=== PATIENT | male | born 1960 | race Caucasian/White ===

== ENCOUNTER 2019-07-22 06:05 | Inpatient (IN) | payer OTHER, SELFPAY ==
[2019-07-09 13:54] VITALS: BMI 26.3
[2019-07-22] VITALS (14 sets, daily range): BP systolic 128–156; BP diastolic 84–100; PULSE 72–99; RESP 8–18; TEMP 35.9–37.7; O2SAT 94–99; BMI 25.2
--- NOTE | 2019-07-22 | DI.RAD.S_ITS ---
PROCEDURE: XR CERVICAL SPINE 2V OR 3V INDICATIONS: C3-4, 4-5, 5-6, 6-7 ACDF WITH ANTERIOR INSTRUMENTATION TECHNIQUE: 2 intraoperative fluoroscopic view(s) of the cervical spine were acquired. COMPARISON: [facility], MR, MR CERVICAL SPINE WITHOUT CONTRAST, 05/17/2019, 6:53. FINDINGS: ACDF spanning the C3-C7 levels. Endotracheal tube is in place. IMPRESSION: Expected appearance of the ACDF at C3-C7. Dictated by: Alejandro Aguillon M.D. on 07/22/2019 at 12:29 Approved by: Alejandro Aguillon M.D. on 07/22/2019 at 12:31
[2019-07-22] MEDS: LACTATED RINGERS 1,000 ML 42 ML IV ×2 (07:42→09:49)
[2019-07-22] MEDS: CEFAZOLIN 2 GM/100 ML FROZ.PIGGY IV ×3 (07:45→23:15)
--- NOTE | 2019-07-22 08:24 | SUR.OPER ---
Supine, head on gel donut. Arms padded with gel pads, tucked at sides, towel roll under shoulders. Tape from shoulder to toes bilaterally. Safety belt at thigh. Legs uncrossed.
--- NOTE | 2019-07-22 08:32 | SUR.OPER ---
Diffuse flat reddened rash to chest and shoulders noticed during positioning. Dr. Branch notified during time out.
--- NOTE | 2019-07-22 12:19 | P.OP_ITS ---
Operative Date/Time/Diagnoses Date of procedure: 07/22/19 Time of procedure: 08:19 Pre-op diagnosis: 1. C3-4, C4-5, C5-6, C6-7 spinal stenosis 2. C3-4, C4-5, C5-6, C6-7 spondylolisthesis 3. C3-4, C4-5, C5-6, C6-7 spondylosis with radiculopathy Post-op diagnosis: same Procedure & Clinicians Procedure: 1. C3-4 C4-5 C5-6 C6-7 anterior cervical diskectomy and fusion 2. C3-4 C4-5 C5-6 anterior interbody cage placement 3. C6-7 structural allograft placement 4. C3-4 C4-5 C5-6 C6-7 anterior instrumentation with plate and screw placement in C3-C4-C5-C6 and C7 vertebrae 5. Utilization of microsurgical technique and operating microscope Same procedure as scheduled: Yes Indications: Patient has been having chronic neck pain and worsening cervical radiculopathy. Patient failed multiple conservative management with worsening pain weakness and numbness in her upper extremity. Patient has been having difficulty performing activity of daily living. After discussing risks benefits of treatment options, patient elected proceed with surgery. Surgeon: Jeovany Branch Leak Detection Engineer: Blanquita Bautista'Brien Click Yes if Unassisted: No Anesthesia Type: General Operative Notes Closure Type: primary Specimen(s): none sent Prosthetic devices, grafts, tissues, transplants, or devices: Globus extend plate, Peek Cages, structural allograft Applied: catheter Estimated Blood Loss (mL): 30 Blood products transfused: none Procedure in detail: Using lateral C-arm imaging, the level between C3 and C7 was identified and marked on patient's neck. A oblique incision from midline towards medial border of sternocleidomastoid muscle was made. The platysma muscle was incised in line with skin incision. Metzenbaum scissor was used to develop the plane between the medial border of sternocleidomastoid d and the strap muscles medially. The carotid sheath and its contents were identified and protected behind the hand-held retractor during the entire case. The plane between the carotid sheath and strap muscles was developed with Metzenbaum scissors. Dissection was made down to the level of the anterior cervical fascia. Longus colli muscle was incised on the anterior aspect of vertebral bodies bilaterally from C3-C7. Spinal needle was placed into the C4-5 disc space and confirmed with lateral C-arm imaging. Using microsurgical technique and operative microscope, anterior cervical diskectomy was performed at C3-4 C4-5 C5-6 and C6-7 level. This was done by removing the disc material, removing the anterior and posterior osteophytes posterior longitudinal ligaments along with performing bilateral foraminotomies at all 4 levels. Patient was found to have severe central and foraminal stenosis at all 4 levels. Patient's stenosis was fully decompressed after decompression was completed. After the diskectomy was completed, 4 anterior interbody cages were obtained. The cages were packed with globus via cell bone grafting material. One cage each along with the bone grafting material was then packed into the interbody spaces from C3-C6 with 1 cage into each interbody level. Total of 3 cages. A structural allograft was placed into the C6-7 interbody space to accomplish anterior interbody fusion C6-7 level. Large anterior and posterior osteophytes was removed using Kerrison rongeur and Leksell rongeur. After the cages were placed, the anterior cervical plate was stabilized to the C3-C7 vertebrae using 2 screws at each each level. Total 10 screws were placed. After confirming placement of the hardware with AP and lateral C-arm imaging, the screws were locked into the plate using the locking mechanism and torque limiting screwdriver. After the hardware was placed and confirmed with AP and lateral C-arm imaging, the wound was irrigated with sterile normal saline. The platysma muscle and the subcutaneous tissue was closed with 2-0 Vicryl. The skin was closed with 4- 0Monocryl and Steri-Strips. Patient tolerated the procedure well. Patient was transferred recovery room in stable condition. There were no complications. Complications: none Post-operative Condition: stable Disposition: PACU Plan for aftercare: Admit to inpatient hospital
--- NOTE | 2019-07-22 12:35 | SUR.OPER ---
Addendum entered by Sheri Bardales R.N. 07/22/19 12:36: No force was needed or applied during placement. It was not a difficult [place] to place. Dr. Branch, Dr. Lovett, and PACU nurse notified. Original Note: Blood noted in tubing of K[place]ney catheter during transfer to inpatient bed from OR table. No
--- NOTE | 2019-07-22 13:28 | SUR.PHASEI ---
Directly before transferring pt to floor, pt observed to have rash on left flank area. Advised CINTHYA Lynch of this. No new orders received. Pt reports has sensitive skin and no open areas observed. Communicated this with acute care RN Susan. Bedside report given to ELAINE Davis upon arrival. pt alert and talking to RN during transport, vss. Transferred care of pt to ELAINE Davis at that time.
[2019-07-22] MEDS: SODIUM CHLORIDE 0.9% 1,000 ML 100 ML IV ×2 (14:01→23:17)
[2019-07-22] MEDS: OXYCODONE IR 5 MG TABLET 10 MG PO ×2 (14:14→23:15)
--- NOTE | 2019-07-22 15:15 | PT.IIE ---
Current Diagnoses Spondylolisthesis, cervical region (07/22/19) Other spondylosis with myelopathy, cervical region (07/22/19) Other spondylosis with radiculopathy, cervical region (07/22/19) Surgery Performed Operation Date: 07/22/19 07:45 Actual Procedures p C3-4, C4-5, C5-6, C6-7 ACDF w/ anterior instrumentation - Jeovany Branch MD Surgical History (Last Updated 07/09/19 @ 13:55 by Elaina Franklin RN) Hx of sinus surgery (Acute) Medical History (Last Updated 07/09/19 @ 13:55 by Elaina Franklin RN) Arthritis (Acute) HLD (hyperlipidemia) (Acute) HTN (hypertension) (Acute) Sinus drainage (Acute) Physical Therapy Inpatient Evaluation/Re-Eval M1 PT/OT-IP Prior Functional Status Start: 07/22/19 14:14 Freq: NEEDED Status: Active Protocol: Document 07/22/19 14:56 AW (Rec: 07/22/19 15:15 AW [id number]) Medical Review Prior Functional Status Medical History Reviewed Yes Communication Pt is an effective verbal communicator Mobility and Gait Independent without assistive device. Pt walks his dog 2 miles daily Activities of Daily Living and IADL's Independent Social History Household Members spouse Living Arrangements House Number of Floors (Floors) 3 or More Floors Number of Stairs To Enter/Railing? Level entrance through garage. 12 steps to second floor with no railing but angel nearby for support. 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 His does not work outside the home and is able + available to assist 24/7. M2 PT-IP Current Condition Start: 07/22/19 14:14 Freq: NEEDED Status: Active Protocol: Document 07/22/19 14:56 AW (Rec: 07/22/19 15:15 AW [id number]) Physical Therapy Current Condition Current Condition Evaluation Date 07/22/19 Treatment Diagnosis ACDF 4-levels, difficulty in walking Onset Date 07/22/19 Precautions Cervical Spine Precautions Soft Collar for Comfort,Log Roll Weight Bearing Status Weight Bearing Status Full Weight Bearing M3 PT-IP Subjective Start: 07/22/19 14:14 Freq: NEEDED Status: Active Protocol: Document 07/22/19 14:56 AW (Rec: 07/22/19 15:15 AW [id number]) Subjective Physical Therapy Visit Type Type Initial Evaluation Visit Start Time 14:27 Visit Stop Time 14:52 Total Visit Minutes 25 Number of DESIGN DRAFTER Visits 0 Physical Therapy Visit Comments Patient Comments Pt is willing to mobilize with PT Patient Goals To return to work on September 08 Therapy Pain Assessment Pain When Pain Assessed During Mobility Pain Present Pain Present Pain Reported Location neck Intensity 4 Scale Used 4/10 at rest; unchanged with mobility Pain Management Techniques Apply Cold,Timing of Activity with Medications M4 PT-IP Mobility and Gait Start: 07/22/19 14:14 Freq: NEEDED Status: Active Protocol: Document 07/22/19 14:56 AW (Rec: 07/22/19 15:15 AW [id number]) PT-Bed Mobility Assessment Rolling Type of Rolling Log Rolling Level of Assist Independent Supine to Sit Supine to Sit Independent Sit to Supine Sit to Supine Independent Scooting Scooting to Edge of Bed Independent PT-Transfer Assessment Sit to and From Stand Sit to and from Stand Independent Equipment Transfer Assistive Device None,Gait Belt Orthotic/Prosthetic Devices or Brace: Yes Transfers Transfer Destination Bed Transfer Technique pt ambulated without AD Transfer Ability Level of Assist Independent Comments Mobility Comments Pt successfully completed log roll to his left side and supine to sit independent. He sat EOB for MMT demonstrating good balance. He stood without assist and returned to bed without assist after gait assessment. Prior to activity: BP 156/99 HR 89 After activity: BPO 157/103 HR 95 Gait Assessment Gait Gait Assistance Required: Independent,Standby Assistance Distance (Feet) 350 Able to Maintain Weight Bearing Status Yes During Gait Assistive Devices Assistive Device None,Gait Belt Orthotic/Prosthetic Devices or Brace: Yes Gait Deviations General Gait Pattern Within Normal Limits,Decreased Feet Clearance Factors Limiting Gait Function Factors Limiting Gait Function Pain Stair Climbing Assessment Evaluation Level of Assist On Stairs Standby Assistance Devices Stair Climbing Assistive Devices None Technique/Endurance Stair Climbing Direction Ascend and Descend Stair Climbing Technique Step Over Step Number of Steps Climbed 3 Query Text: Stair Climbing Set # Repetitions (reps) 4 Comments Stair Climbing Comments Pt states he can contact the wall at home for support but demonstrated safety with no UE support up and down the stairs after reminders that the soft collar could limit his lower field of vision. PT-Balance Assessment Sitting Balance and Reactions Static Sitting Balance Ability Normal Dynamic Sitting Balance Ability Normal Standing Balance and Reactions Static Standing Balance Ability Normal Dynamic Standing Balance Ability Good Device Used FWW M5 PT-IP Objective Assessments Start: 07/22/19 14:14 Freq: NEEDED Status: Active Protocol: Document 07/22/19 14:56 AW (Rec: 07/22/19 15:15 AW [id number]) Orientation Orientation/Cognition Level of Alertness Alert Orientation Name,Day of Week,Place, Situation Language Function Ability No Deficits Noted Safety Awareness Understands Safety Issues Memory Description No Deficits Noted Gross Range of Motion Lower Extremity ROM Assessment Within Functional Limits Strength Lower Extremity Strength Assessment Within Functional Limits Comments Strength Comments BLE strength 5/5 all major muscle groups Coordination Assessment Gross Coordination Gross Coordination WNL Sensation Assessment Sensation Gross Sensation WNL Muscle Tone Muscle Tone WNL Yes M6 PT-IP Treatment Start: 07/22/19 14:14 Freq: NEEDED Status: Active Protocol: Document 07/22/19 14:56 AW (Rec: 07/22/19 15:15 AW [id number]) Physical Therapy Treatment Exercises Exercises Ankle Pumps Education Education Provided Precautions,Post-Op Packet, Safety Other Treatments Other Treatment Performed Provided education on role of PT, plan of care, effect of pain meds on falls risk. Also educated pt on signs to watch for regarding swallow function ; left handout with same information for pt to review. M7 PT-IP Assessment and Plan Start: 07/22/19 14:14 Freq: NEEDED Status: Active Protocol: Document 07/22/19 14:56 AW (Rec: 07/22/19 15:15 AW [id number]) PT Summary Assessment and Plan Potential Rehabilitation Potential Excellent Status of Condition at Evaluation Evolving Summary Impairments Pain,ROM Assessment Summary Pipo is a 59 yo man seen for PT evaluation on POD0 following multi-level ACDF. 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 On evaluation, he required SBA only occasionally for ambulation without AD and also for stair navigation. If he remains overnight, he would benefit from one additional session to review precautions and to reassess safety on stairs. PT recommends discharge to home with spouse assist once medically cleared. Goals Gait Goal Independent Gait Distance 300 Other Goals - up/down 12 steps without railing independent Days to Meet Goals 1 Frequency of Treatment Frequency Of Treatment Twice a Day Treatment Plan Physical Therapy Treatment Plan Gait Training,Therapeutic Exercise,Post Op Education, Discharge Planning,Hot or Cold Pack Recommendations To Nursing Amount of Assist Needed Standby Assistance Discharge Recommendations PT Discharge Recommendations Home with Assistance Transportation Needs at Discharge Private Vehicle
--- NOTE | 2019-07-22 15:38 | PC.NURSE ---
POST OP ARRIVAL 1325 - pt is alert, states neck discomfort 4 on scale 0/10, no numbness or tingling hands or feet, wearing soft cervical collar with telfa dsg cdi, EXCHANGE SPECIALIST reviewed areas of redness, has an indistinct pink area around a previous ekg electrode site l torso, has a red tape outline r forearm from tape applied in pacu, no areas are open, per pt, no discomfort or itching, per EXCHANGE SPECIALIST there was a trace of blood in lanza bag that they emptied, noted to have some pink in lanza tubing on arrival, ra 98%, footie scd applied, denies nausea, hr reg 84, voice is a little hoarse and discussed po intake, started with a few ice chips and later added pudding with 10mg po oxycodone.
[2019-07-22] MEDS: DOCUSATE 100 MG CAPSULE PO (21:21)
[2019-07-22] MEDS: SENNOSIDES 8.6 MG TABLET 17.2 MG PO (21:21)
--- NOTE | 2019-07-23 00:18 | PC.NURSE ---
Addendum entered by Lazara Almaraz R.N. 07/23/19 06:38: States pain is continuing at 4/10 but decided to take pain medication; medicated with Oxycodone Addendum entered by Lazara Almaraz R.N. 07/23/19 05:01: Patient slept at intervals. Earlier reports IV talking to him but now states he is aware it is just the sound of the machine. Requests to have catheter d'cd and reportedly did well in therapy yesterday and is hoping to discharge later today. Catheter d'cd and patient instructed in sx/prevention of UTI; verbalizes understanding. States pain is again 4/10 but declines offer of pain med. Original Note: Patient seen and assessed at 2330. Is alert and oriented. Breath sounds CTA with RA sat of 98%. Wearing soft cervical collar for comfort. Dressing to anterior neck is CDI. Does complain of 4/10 posterior neck pain and was medicated with Oxycodone. States throat is sore and is taking ice chips for comfort. Reports difficulty swallowing stool softener on previous shift but no difficulty swallowing pain meds at this time. HRR. BP elevated at 153/89; has hx of hypertension. Denies nausea. BT present but denies flatus as yet. Indwelling catheter is patent; urine is clear madhuri. Refusing to wear SCD's so reminded to ankle wave when awake. Turning self in bed. Gait not assessed but reports he was walking in halls earlier with SBA. Fall risk score is low; bed alarm is on for safety.
[2019-07-23 04:40] VITALS: BP 148/95; PULSE 68; RESP 18; TEMP 37.5; O2SAT 100
[2019-07-23] MEDS: OXYCODONE IR 5 MG TABLET 10 MG PO (06:36)
--- NOTE | 2019-07-23 07:41 | P.PN_ITS ---
Subjective Subjective Date Patient Seen: 07/23/19 Time Patient Seen: 07:41 Interval history: POD #1 s/p C3-[address] Branch. Patient's pain is well controlled with oxycodone and Tylenol. He complains of muscle spasms posteriorly. No difficulty swallowing. He does have a sore throat. No difficulty eating breakfast. [place] was removed this morning. He has not voided yet. Exam Vital Signs (past 8 hours): - 07/23/19 04:40 Temperature 99.5 F Pulse Rate 68 Respiratory Rate 18 Blood Pressure 148/95 H Pulse Oximetry 100 Oxygen Delivery Method Room Air Oxygen Flow Rate 0 Narrative Exam Narrative: Patient lying in bed in no acute distress. Alert orient x3. Cat halves are soft, compressible, nontender bilaterally. Radial pulses are symmetrical. Marketing Sales Representative strength is strong and equal. Wearing soft collar. Dressing on anterior neck is CDI. Objective Labs Result Diagrams: 07/23/19 08:15 Assessment & Plan Post-op Postoperative Procedures: Procedures Operation Date: 07/22/19 07:45 Actual Procedures Side Surgeon p C3-4, C4-5, C5-6, C6-7 ACDF w/ anterior instrumentation Jeovany Branch MD Patient will mobilize with physical therapy today. No excessive bending, lifting, or twisting. Patient's catheter was removed this morning and waiting for him to void. Continue current pain control. Recommending Vistaril for muscle spasms. If patient is mobilizing safely, voiding, with adequate pain control he can go home today. Quality VTE Deep Vein Thrombosis/Pulmonary Embolism Present on Admission: No
--- NOTE | 2019-07-23 08:40 | OT.IP.EVAL ---
Current Diagnoses Spondylolisthesis, cervical region (07/22/19) Other spondylosis with myelopathy, cervical region (07/22/19) Other spondylosis with radiculopathy, cervical region (07/22/19) Surgery Performed Operation Date: 07/22/19 07:45 Actual Procedures p C3-4, C4-5, C5-6, C6-7 ACDF w/ anterior instrumentation - Jeovany Branch MD Past Medical History (Last Updated 07/09/19 @ 13:55 by Elaina Franklin RN) Arthritis (Acute) HLD (hyperlipidemia) (Acute) HTN (hypertension) (Acute) Sinus drainage (Acute) Surgical History (Last Updated 07/09/19 @ 13:55 by Elaina Franklin RN) Hx of sinus surgery (Acute) Occupational Therapy Inpatient Evaluation/Re-Eval M1 PT/OT-IP Prior Functional Status Start: 07/22/19 14:14 Freq: NEEDED Status: Active Protocol: Document 07/22/19 14:56 AW (Rec: 07/22/19 15:15 AW [id number]) Medical Review Prior Functional Status Medical History Reviewed Yes Communication Pt is an effective verbal communicator Mobility and Gait Independent without assistive device. Pt walks his dog 2 miles daily Activities of Daily Living and IADL's Independent Social History Household Members spouse Living Arrangements House Number of Floors (Floors) 3 or More Floors Number of Stairs To Enter/Railing? Level entrance through garage. 12 steps to second floor with no railing but angel nearby for support. 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 His does not work outside the home and is able + available to assist 02/01. M3 OT- IP Subjective and Pain Start: 07/23/19 08:44 Freq: Status: Active Protocol: Document 07/23/19 08:44 [facility] (Rec: 07/23/19 09:06 CCC [id number]) OT- Subjective Occupational Therapy Visit Type Type Initial Evaluation Visit Start Time 08:30 Visit Stop Time 08:40 Total Visit Minutes 10 Occupational Therapy Visit Comments Patient Comments Pt cooperative and willing to do OT eval. Patient/Caregiver Goals To go home today. OT Pain Assessment Pain When Pain Assessed At Rest Pain Present Pain Present Denied Pain M4 OT- IP ADL's Start: 07/23/19 08:44 Freq: Status: Active Protocol: Document 07/23/19 08:44 [facility] (Rec: 07/23/19 09:06 [facility] [id number]) OT SGO-Ciwk-Zulevcp General Evaluation Self-Feeding Ability Independent Comments OT Self-Feeding Comments Educated pt to eat softer food initially. Pt states not having any trouble swallowing at this time. OT ADL-Grooming Comments OT Grooming Comments Educated pt to spit into a cup versus bend at his neck, otherwise lean over the sink. OT ADL-Oral Care Comments Oral Care Comments Not performed, pt states to do after eating. OT ADL-Dressing General Eval Lower Body Dressing Ability Independent Comments OT Dressing Comments Pt able to stefanie/doff socks independently while sitting and emphasized safer to sit for LB dressing initially to get clothing items over his feet first before standing. After education, pt able to stefanie/doff soft collar with good safety and demonstration. OT ADL-Toileting Comments OT Toileting Comments Pt not having to go. Educated to pt to be careful not to flex his head when trying to wipe. OT ADL-Bathing Comments OT Bathing Comments Educated able to wear soft collar in the shower and then place in the dryer afterwards. In addition , pt may benefit from a shower chair and to assist as needed. M6 OT- IP Functional Cognition Start: 07/23/19 08:44 Freq: Status: Active Protocol: Document 07/23/19 08:44 [facility] (Rec: 07/23/19 09:06 [facility] [id number]) Cognitive Factors Limiting Selfcare Function Cognitive Ability Level of Alertness Alert Patient Orientation Name,Place,Situation Attention Span Ability Capable of Focused Attention, Capable of Sustained Attention Ability to Follow Commands Able to Follow Multi-Step Commands Memory Description No Deficits Noted Safety Awareness Decreased Ability to Apply Precautions,Underestimates Need for Assistance Problem Solving Ability No deficits Noted Cognitive Comments Cognitive Assessment Comments Pt needing vc to slow down. Pt tends to want to turn his neck versus turn his body especially when talking to people. Pt needing cues to slow down and and think about his cervical precautions. OT- Vision and Hearing OT- Hearing Assessment OT- Hearing Assessment WFL M7 OT- IP Mobility and Balance Start: 07/23/19 08:44 Freq: Status: Active Protocol: Document 07/23/19 08:44 [facility] (Rec: 07/23/19 09:06 [facility] [id number]) OT-Transfer Assessment Sit to and From Stand Sit to and from Stand Independent Transfers Transfer Ability Independent Technique Transfer Destination Bed Devices Transfer Assistive Devices None Comments Mobility Comments Pt independent to move in the room without any devices. OT- Gait Assessment Gait Gait Assistance Required: Independent Assistive Devices Assistive Device None OT- Balance Assessment Sitting Balance and Reactions Static Sitting Balance Ability Normal Dynamic Sitting Balance Ability Normal Standing Balance and Reactions Static Standing Balance Ability Normal Dynamic Standing Balance Ability Good M8 OT- IP Objective Assessments Start: 07/23/19 08:44 Freq: Status: Active Protocol: Document 07/23/19 08:44 [facility] (Rec: 07/23/19 09:06 [facility] [id number]) OT Gross Range of Motion Upper Extremity Range of Motion Assessment Within Functional Limits OT Strength Upper Extremity Strength Assessment Within Functional Limits M9 OT- IP Assessment and Plan Start: 07/23/19 08:44 Freq: Status: Active Protocol: Document 07/23/19 08:44 [facility] (Rec: 07/23/19 09:06 [facility] [id number]) OT Summary Assessment and Plan Potential Rehabilitation Potential Excellent Analytic Complexity at Evaluation Low Summary OT Impairments Functional Cognition Progress Towards Goals Slow Progress due to Cognition Assessment Summary Pt low complexity and main barrier just needing cues for incorporation of cervical precautions. Pt has a supportive that will be home to assist pt as needed. Goals Patient/Caregiver Education Goal Demonstrate Post-Op Precautions,Caregiver Independent Assisting Patient Days to Meet Goals 1 Frequency of Treatment Frequency Of Treatment Once a Day Treatment Plan OT Treatment Plan Patient/Family Education, Discharge Planning Discharge Recommendations OT Discharge Recommendations Home with Assistance Transportation Needs at Discharge Private Vehicle
[2019-07-23 08:58] LABS: Hematocrit 44.6 % (41-53); Hemoglobin 15.3 g/dL (13.5-17.5); Mean Corpuscular HGB Conc 34.3 % (30-36); Mean Corpuscular Hemoglobin 30.7 PG (26-34); Mean Corpuscular Volume 89.4 fL (80-100); Platelet Count 154 X10^3/uL (150-400); Red Blood Cell Count 4.99 X10^6/uL (4.5-5.9); Red Cell Distribution Width 12.4 % (11.6-14.8); White Blood Cell Count 7.9 X10^3/uL (4.5-11.0)
[2019-07-23 09:36] VITALS: BP 134/87; PULSE 75; RESP 16; TEMP 37.6; O2SAT 100
--- NOTE | 2019-07-23 09:42 | ST.IPSCREEN ---
Swallow screen completed per protocol. Patient was able to eat dinner and breakfast last night without significant difficulty. He is eating ice chips for soreness/pain in the throat. Swallow evaluation not needed at this time.
--- NOTE | 2019-07-23 10:11 | PT.IPTN ---
Current Diagnoses Spondylolisthesis, cervical region (07/22/19) Other spondylosis with myelopathy, cervical region (07/22/19) Other spondylosis with radiculopathy, cervical region (07/22/19) Surgery Performed Operation Date: 07/22/19 07:45 Actual Procedures p C3-4, C4-5, C5-6, C6-7 ACDF w/ anterior instrumentation - Jeovany Branch MD Physical Therapy Treatment Note M2 PT-IP Current Condition Start: 07/22/19 14:14 Freq: NEEDED Status: Active Protocol: Document 07/22/19 14:56 AW (Rec: 07/22/19 15:15 AW [id number]) Physical Therapy Current Condition Current Condition Evaluation Date 07/22/19 Treatment Diagnosis ACDF 4-levels, difficulty in walking Onset Date 07/22/19 Precautions Cervical Spine Precautions Soft Collar for Comfort,Log Roll Weight Bearing Status Weight Bearing Status Full Weight Bearing M3 PT-IP Subjective Start: 07/22/19 14:14 Freq: NEEDED Status: Active Protocol: Document 07/23/19 10:11 CLB (Rec: 07/23/19 10:43 CLB [id number]) Subjective Physical Therapy Visit Type Type Treatment Note Visit Start Time 10:11 Visit Stop Time 10:23 Total Visit Minutes 12 Number of FIXTURE RELAMPER Visits 1 Therapy Pain Assessment Pain When Pain Assessed During Mobility Pain Present Pain Present Denied Pain M4 PT-IP Mobility and Gait Start: 07/22/19 14:14 Freq: NEEDED Status: Active Protocol: Document 07/23/19 10:11 CLB (Rec: 07/23/19 10:43 CLB [id number]) PT-Bed Mobility Assessment Supine to Sit Supine to Sit Independent Sit to Supine Sit to Supine Independent Scooting Scooting to Edge of Bed Independent PT-Transfer Assessment Sit to and From Stand Sit to and from Stand Independent Equipment Transfer Assistive Device None,Gait Belt Orthotic/Prosthetic Devices or Brace: Yes Transfers Transfer Destination Bed Transfer Technique pt ambulated without AD Transfer Ability Level of Assist Independent Comments Mobility Comments Pt sitting on bed upon arrival . Pt is independent with all bed mobility and sit<>stand. Pt ambulated in qureshi with cues to slow pace for safety. Pt is steady during ambulation and required SBA w/o AD. Pt returned to bed after ambulation. Left pt sitting on bed with all needs within reach. Gait Assessment Gait Gait Assistance Required: Standby Assistance Distance (Feet) 350 Assistive Devices Assistive Device None,Gait Belt Orthotic/Prosthetic Devices or Brace: Yes Gait Deviations General Gait Pattern Within Normal Limits,Decreased Feet Clearance PT-Balance Assessment Sitting Balance and Reactions Static Sitting Balance Ability Normal Dynamic Sitting Balance Ability Normal Standing Balance and Reactions Static Standing Balance Ability Normal Dynamic Standing Balance Ability Good Device Used FWW M5 PT-IP Objective Assessments Start: 07/22/19 14:14 Freq: NEEDED Status: Active Protocol: Document 07/22/19 14:56 AW (Rec: 07/22/19 15:15 AW [id number]) Orientation Orientation/Cognition Level of Alertness Alert Orientation Name,Day of Week,Place, Situation Language Function Ability No Deficits Noted Safety Awareness Understands Safety Issues Memory Description No Deficits Noted Gross Range of Motion Lower Extremity ROM Assessment Within Functional Limits Strength Lower Extremity Strength Assessment Within Functional Limits Comments Strength Comments BLE strength 5/5 all major muscle groups Coordination Assessment Gross Coordination Gross Coordination WNL Sensation Assessment Sensation Gross Sensation WNL Muscle Tone Muscle Tone WNL Yes M6 PT-IP Treatment Start: 07/22/19 14:14 Freq: NEEDED Status: Active Protocol: Document 07/22/19 14:56 AW (Rec: 07/22/19 15:15 AW [id number]) Physical Therapy Treatment Exercises Exercises Ankle Pumps Education Education Provided Precautions,Post-Op Packet, Safety Other Treatments Other Treatment Performed Provided education on role of PT, plan of care, effect of pain meds on falls risk. Also educated pt on signs to watch for regarding swallow function ; left handout with same information for pt to review. M7 PT-IP Assessment and Plan Start: 07/22/19 14:14 Freq: NEEDED Status: Active Protocol: Document 07/23/19 10:11 CLB (Rec: 07/23/19 10:43 CLB [id number]) PT Summary Assessment and Plan Potential Rehabilitation Potential Excellent Status of Condition at Evaluation Evolving Summary Progress Towards Goals Safe For Discharge Assessment Summary Pt is independent for bed mobility and transfers, pt required cues to slow pace for safety during ambulation. Pt to d/c home with spouse to assist when medically stable. Goals Gait Goal Independent Gait Distance 300 Other Goals - up/down 12 steps without railing independent Days to Meet Goals 1 Frequency of Treatment Frequency Of Treatment Twice a Day Treatment Plan Physical Therapy Treatment Plan Gait Training,Therapeutic Exercise,Post Op Education, Discharge Planning,Hot or Cold Pack Recommendations To Nursing Amount of Assist Needed Standby Assistance Discharge Recommendations PT Discharge Recommendations Home with Assistance Transportation Needs at Discharge Private Vehicle
--- NOTE | 2019-07-23 11:02 | PC.NURSE ---
Patient in good spirits and denies having any pain throughout morning shift. Patient educated about the use of narcotics, constipation and his physical limitations after surgery. He left at 10:50 via wheelchair with the FOREST OFFICER and was picked up by his to go home. Patient educated not to drive while taking narcotics and understood.
--- NOTE | 2019-07-23 13:52 | CM.DANOTE ---
DCP/Brief Assessment: Reviewed chart. Patient is a 59yr old male admitted by Dr. Branch for spine surgery. PCP listed is Dr. Perry. Primary payor is Alvina ESPINOZA. Attempted to meet with patient to explain CM/SW role but he had already discharged. Nrsg reports no identified d/c planning needs. P: Home today. AMAURY Marvin Discharge Planning/Care Management Advanced directive, confirm from FAMILY Start: 07/22/19 14:00 Freq: Q24H Status: Discharge Protocol: Document 07/22/19 14:09 NEE (Rec: 07/22/19 14:10 NEE [id number]) Advance Directive, confirm on record Time 14:00 Person contacted pt Copy received No CM Discharge Assessment Start: 07/23/19 13:50 Freq: Status: Discharge Protocol: Document 07/23/19 13:50 KJS (Rec: 07/23/19 13:52 KJS [id number]) Discharge Planning Assessment Assigned Tire Setter AMAURY Marvin Contact Information Jazlyn Rg (spouse) Advance Directives? Yes Advance Directives on File No History Provided By Medical Record Prior Living Arrangements House Household Members spouse Type of transporation used prior to Drives own vehicle admit Independent with ADL's Yes Is patient alert and oriented? Yes Caregiver for Another No Barriers to Discharge No Transportation Arrangement Family to provide transport home. Referrals Initiated None needed Whiteboard Updated in Patient Room with No name and ext. # of Tire Setter Review Status In Process Next Review Type Continued Stay Review Pre-Anesthesia Assessment Start: 07/09/19 13:54 Freq: Status: Complete Protocol: Document 07/09/19 13:54 CAB (Rec: 07/09/19 14:17 CAB [id number]) Pre-Anesthesia Assessment Preferred Name Pipo Patient Information Reviewed Via Phone Assessment Assessment Completed With Patient Comment Labs/EKG done per pt, not available at time of assess Primary Care Provider Chava Perry Seen Specialist in Last 12 Months Yes Specialist Seen Orthopedist Primary Language Tajik Transportation Design Engineer Required No Height 187.96 cm Weight 92.986 kg Body Mass Index (BMI) 26.3 Hearing Ability Normal Visual Assist Magnifying Glass Dentition Type Teeth, Natural Present Barriers to Learning None Other Aids No Hx Anesthesia Reactions No Hx Family Anesthesia Reaction No Hx Malignant Hyperthermia No Hx Blood Transfusions No Anesthesia Review Requested No alcohol intake current alcohol intake frequency 0-2 drinks per day Smoking Status Former smoker how long ago did patient quit smoking Quit 1985 Substance Use Type does not use Pain Present Pain Reported Musculoskeletal Symptoms Back Pain,Neck Pain History of Falling (Recent or History of No ) Patient is completely paralyzed or No completely immobile Mental Status Oriented to own ability Is patient on oxygen? No Does patient have LARA/SOB No Hx Sleep Apnea No Currently Taking a Beta Pooja No Can You Climb a Flight of Stairs Without Yes SOB Hx Chest Pain No Hx SOB No Hx Syncope or Dizziness No Anti-Coagulant Therapy No Has a Burner Operator No Cardiac Testing No Hx Pacemaker/ICD No Pacemaker Rep Required? No Cardiac Clearance Received Not Applicable Diet Type At Home Regular dysphagia No Urinary Catheter Present No Hx Urinary Self Catheterization No Diabetes No Hx Drug Resistant Organism No Presence of External or Internal Medical No Devices Have you traveled outside the [facility] in the last 30 days? Marital Status Lives With spouse Prior Living Arrangements House Number of Floors (Floors) 3 or More Floors Support System Spouse Does the Patient Have Assistance After Yes Surgery Patient Discharge Plan Description Return Home Comment Pt advised overnight length of stay per surgeon Feels Safe in Current Environment Yes Been Physically Hurt or Threatened By a No Person in Current Environment Do you have thoughts of harming yourself None or others? Are you currently considering suicide? No Do you have a plan to hurt yourself or No Plan others? Do You Have Any Spiritual Beliefs That No May Affect Your HC Choices? Do You Have Any Cultural Practices That No May Affect Your HC Choices? Comment Cheondoism Who Can We Speak to About Patient's Care Family, friends Identifying Code for Release of Patient Declines to issue Information Health Care Proxy/Next of Kin Jazlyn () Health Care Proxy Emergency Contact Name Jazlyn () Emergency Contact Advance Directives? No Power of Manager Technical Support Yes Power of Manager Technical Support Name Jazlyn () Power of Manager Technical Support PAC Instructions Do not shave/clip surgical site,Durable medical equipment ,Medications to take/avoid, Nasal antibiotic,No ETOH/ petroleum product on skin DOS, NPO,Post-op transportation,Pre -surgical wash,Sturdy shoes/ comfortable clothes,Do not bring valuables and remove jewelry
== END 2019-07-23 10:50 | disposition home or self-care (01) | DRG 473 ==
PROVIDERS: Physician Assistant Surgical; Admitting Provider Orthopaedic Surgery Orthopaedic Surgery of the Spine; PCP Internal Medicine; Referring Provider Internal Medicine; Visit Provider Orthopaedic Surgery Orthopaedic Surgery of the Spine
PROC: 0RG20A0 Fusion of 2 or more Cervical Vertebral Joints with Interbody Fusion Device, Anterior Approach, Anterior Column, Open Approach (ICD-10-PCS; principal; 2019-07-22 07:45)
DX: M48.02 Spinal stenosis, cervical region (principal); M47.22 Other spondylosis with radiculopathy, cervical region; M43.12 Spondylolisthesis, cervical region; M25.78 Osteophyte, vertebrae; M62.838 Other muscle spasm
CPT/HCPCS: 36415; 72040; 76000; 85027; 97116; 97161; 97165; C1776; J0690; J1100; J1170; J2250; J2405; J2704; J3010